=== PATIENT | female | born 1995 | race Caucasian/White ===

== ENCOUNTER 2017-11-11 14:11 | Emergency (ER) | payer OTHER ==
[2017-11-11 14:14] VITALS: PULSE 114; TEMP 98.9; BMI 26.4
--- NOTE | 2017-11-11 14:14 | PDOC ---
Rapid Medical Evaluation Time Seen by Provider: 11/11/17 14:14 Medical Evaluation: Allergies Allergy/AdvReac Type Severity Reaction Status Date / Time Sulfa (Sulfonamide Allergy Verified 11/11/17 14:11 Antibiotics) Vital Signs Temp Pulse Resp BP Pulse Ox 98.9 F 114 H 18 122/100 100 11/11/17 14:12 11/11/17 14:12 11/11/17 14:12 11/11/17 14:12 11/11/17 14:12 11/11/17 14:15 21 year old female with history of CAH and PCOS presenting with 2 weeks of worsening right flank pain, now with left flank pain. Chills but no fever. No dysuria/hematuria. History of UTI x 1 age 11. No history of nephrolithiasis. V/s notable for P 114. Bilateral CVA and suprapubic tenderness. -UA/culture -To FT for further evaluation
[2017-11-11 14:28] LABS: URINE APPEARANCE SLCLOUDY; URINE BILIRUBIN NEGATIVE (NEGATIVE); URINE BLOOD NEGATIVE (NEGATIVE); URINE COLOR YELLOW; URINE GLUCOSE (UA) NEGATIVE (NEGATIVE); URINE KETONE NEGATIVE (NEGATIVE); URINE NITRITE NEGATIVE (NEGATIVE); URINE PROTEIN NEGATIVE (NEGATIVE); URINE UROBILINOGEN NEGATIVE mg/dL (0.2-1.0)
[2017-11-11 14:31] LABS: URINE LEUK ESTERASE 1+ (NEGATIVE)
[2017-11-11 14:37] LABS: EPI CELLS RARE /HPF (FEW); URINE MUCUS FEW
--- NOTE | 2017-11-11 15:59 | PDOC ---
History of Present Illness - General Chief Complaint: Back Pain Stated Complaint: ANDREW PAIN Time Seen by Provider: 11/11/17 14:14 History Source: Patient Exam Limitations: No Limitations - History of Present Illness Initial Comments: 11/11/17 15:54 21 yr female with c/o 2 weeks low back pain radiates to flank and suprapubic area no fever , neg nausea neg vomiting or diarrhea , neg urine complaints. LMP october 29. Pt took advil this AM. Past History - Past Medical History Allergies/Adverse Reactions: Allergies Allergy/AdvReac Type Severity Reaction Status Date / Time Sulfa (Sulfonamide Allergy Verified 11/11/17 14:11 Antibiotics) Home Medications: Ambulatory Orders Dexamethasone 0.5 mg PO ASDIR 02/23/14 COPD: No Other medical history: PCOS - Suicide/Smoking/Psychosocial Hx Smoking History: Never smoked Have you smoked in the past 12 months: No Number of Cigarettes Smoked Daily: 0 Information on smoking cessation initiated: No Hx Alcohol Use: No Drug/Substance Use Hx: No Substance Use Type: None *Physical Exam - Vital Signs Last Vital Signs Temp Pulse Resp BP Pulse Ox 98.9 F 114 H 18 122/100 100 11/11/17 14:12 11/11/17 14:12 11/11/17 14:12 11/11/17 14:12 11/11/17 14:12 - Physical Exam General Appearance: Yes: Nourished, Appropriately Dressed HEENT: positive: EOMI, ZOE Neck: positive: Supple. negative: Tender Respiratory/Chest: positive: Lungs Clear, Normal Breath Sounds. negative: Chest Tender Cardiovascular: positive: Regular Rhythm, Regular Rate Female Pelvic Exam: positive: normal external exam, normal adnexa, discharge ( thick white ), adnexal tenderness (right and middle ). negative: CMT (neg CMT ) Gastrointestinal/Abdominal: positive: Normal Bowel Sounds, Tender (suprapubic area ), Soft Lymphatic: negative: Adenopathy Musculoskeletal: positive: Normal Inspection, Decreased Range of Motion (due to pain ), Vertebral Tenderness (lumbar spine point tenderness ), Other (ttp soft tissue lumbar spine and flank ttp ). negative: CVA Tenderness (R), CVA Tenderness (L) Extremity: positive: Normal Capillary Refill, Normal Inspection, Normal Range of Motion Integumentary: positive: Normal Color, Dry, Warm Neurologic: positive: Fully Oriented, Alert, Normal Mood/Affect, Normal Response , Motor Strength / ED Treatment Course - LABORATORY CBC & Chemistry Diagram: 11/11/17 15:45 11/11/17 15:45 - ADDITIONAL ORDERS Additional order review: Laboratory Results 11/11/17 02:17 Urine Color Yellow Urine Appearance Slcloudy Urine pH 5.0 D Ur Specific [place] 1.027 Urine Protein Negative Urine Glucose (UA) Negative Urine Ketones Negative Urine Blood Negative Urine Nitrite Negative Urine Bilirubin Negative Urine Urobilinogen Negative Ur Leukocyte Esterase 1+ H Urine WBC (Auto) 6 Urine RBC (Auto) 2 Ur Epithelial Cells Rare Urine Mucus Few Medical Decision Making - Medical Decision Making 11/11/17 17:52 cc: low back pain , pelvic pain for 2 weeks worse with standing neg urine or bowel dysfunction, however pt has chronic constipation denies fever , neg nvd, neg vaginal discharge or bleeding. LMP 2 weeks ago pt has no history of back injury no IVDA no surgerie tender to lumbar spine, suprapubic tenderness will r/o PID r/o ovarian cyst 11/11/17 19:40 US and cat scan results reviewed with pt and her mother. pt states her pain is tolerable and is not asking for any pain meds. I have sent flexeril and naprosyn to the pharmacy. pt agrees to follow up as discussed, pt understands that the workup is not complete until she has followed with the referred doctors. pt has her own [employer] and her own PMD. *DC/Admit/Observation/Transfer Diagnosis at time of Disposition: Muscle spasm, Pelvic pain Back pain Qualifiers: Back pain location: low back pain Chronicity: acute Back pain laterality: bilateral Sciatica presence: with sciatica Sciatica laterality: bilateral sciatica Qualified Code(s): M54.42 - Lumbago with sciatica, left side - Discharge Dispostion Disposition: HOME Condition at time of disposition: Good - Referrals - Patient Instructions Additional Instructions: apply warm compresses to your lower back and your lower pelvis every 3hrs for 20 -30 minutes take naprosyn for pain as directed take flexeril for any back spasm follow with your medical doctor in 1-4 days for follow up call tomorrow to make appointment you can also follow with the orthopedist for pain in your lower back if it gets worse avoid heavy lifting or bending as this can make symptoms worse follow with your analytical research program manager Wednesday or Wednesday for a follow up exam Return to ER for any fever, vomiting severe pain or any other worsening symptoms or concerns - Post Discharge Activity
[2017-11-11 16:51] LABS: BASO % 0.6 % (0-2.0); EOS % 2.9 % (0-4.5); HEMATOCRIT 34.5 % (32.4-45.2); HEMOGLOBIN 11.4 GM/dL (10.7-15.3); LYMPH % 39.6 % (8-40); MCH 25.4 pg (25.7-33.7); MCHC 32.9 g/dl (32.0-36.0); MEAN CELL VOLUME 77.2 fl (80-96); MEAN PLT VOLUME 8.9 fl (7.5-11.1); MONO % 7.6 % (3.8-10.2); NEUT % 49.3 % (42.8-82.8); PLATELET COUNT 251 K/MM3 (134-434); RBC 4.47 M/mm3 (3.60-5.2); RDW 14.1 % (11.6-15.6); WHITE BLOOD COUNT 8.3 K/mm3 (4.0-10.0)
[2017-11-11 17:08] LABS: ALBUMIN 3.5 g/dl (3.4-5.0); ANION GAP 8 (8-16); BILIRUBIN,TOTAL 0.5 mg/dL (0.2-1.0); BLOOD UREA NITROGEN 17 mg/dL (7-18); CALCIUM 8.2 mg/dL (8.5-10.1); CHLORIDE 107 mmol/L (98-107); CO2 24 mmol/L (21-32); CREATININE 0.6 mg/dL (0.55-1.02); GLUCOSE,RANDOM 66 mg/dL (74-106); POTASSIUM 3.7 mmol/L (3.5-5.1); SGOT/AST 9 U/L (15-37); SGPT/ALT 16 U/L (12-78); SODIUM 139 mmol/L (136-145)
[2017-11-11 17:12] LABS: ALK PHOS 48 U/L (45-117)
[2017-11-11 18:40] VITALS: BP 133/75
== END 2017-11-11 19:09 | disposition home or self-care (01) ==
LOC: JERFT 14:11
DX: M54.42 Lumbago with sciatica, left side (principal); M62.838 Other muscle spasm
CPT/HCPCS: 36415; 72131-TC; 76830-TC; 80053; 81003; 81015; 84702; 85025; 87070; 87086; 87205; 87491; 87591; 99281-25

== ENCOUNTER 2021-09-10 06:33 | Emergency (ER) | payer OTHER ==
[2021-09-10 07:05] VITALS: BMI 23.0
[2021-09-10] MEDS ORDERED: ONDANSETRON 4 MG/2 ML VIAL IVPUSH ONE (07:19)
[2021-09-10] MEDS ORDERED: FAMOTIDINE 20 MG/50 ML IVPB 20 MG/50 ML MG IVPB ONE ×2 (07:19→07:29)
[2021-09-10] MEDS ORDERED: SODIUM CHLORIDE 1,000 ML IV STA (07:19)
[2021-09-10] MEDS ORDERED: ACETAMINOPHEN 1000 MG/100 ML VIAL IVPB ONE (07:20)
[2021-09-10] MEDS ORDERED: MAG HYDROX/AL HYDROX/SIMETH 30 ML UNIT-DOSE CUP PO ONE (07:20)
[2021-09-10] MEDS ORDERED: ACETAMINOPHEN INJECTION 100 ML IVPB ONE (07:29)
[2021-09-10] MEDS ORDERED: ONDANSETRON 4 MG/2 ML VIAL ONE (07:29)
[2021-09-10] MEDS ORDERED: MAG HYDROX/AL HYDROX/SIMETH 30 ML UNIT-DOSE CUP ONE (07:29)
[2021-09-10 08:30] LABS: BASO % 0.6 % (0-2.0); EOS % 1.3 % (0-4.5); HEMATOCRIT 34.9 % (32.4-45.2); HEMOGLOBIN 11.9 GM/dL (10.7-15.3); MCHC 34.2 g/dl (32.0-36.0); MEAN CELL VOLUME 70.2 fl (80-96); MEAN PLT VOLUME 7.9 fl (7.5-11.1); MONO % 18.9 % (3.8-10.2); NEUT % 56.2 % (42.8-82.8); PLATELET COUNT 299 10^3/uL (134-434); RBC 4.97 M/mm3 (3.60-5.2); RDW 14.7 % (11.6-15.6); WHITE BLOOD COUNT 6.8 K/mm3 (4.0-10.0)
[2021-09-10 08:36] LABS: INR 1.08 (0.83-1.09); PROTHROMBIN TIME (PATIENT) 12.1 SEC (9.7-13.0)
[2021-09-10 08:59] LABS: CALCIUM 8.6 mg/dL (8.5-10.1)
[2021-09-10 09:00] LABS: ALBUMIN 3.2 g/dl (3.4-5.0); BLOOD UREA NITROGEN 21.9 mg/dL (7-18)
[2021-09-10 09:04] LABS: BILIRUBIN,TOTAL 0.3 mg/dL (0.2-1); TOT PROT 7.9 g/dl (6.4-8.2)
[2021-09-10] MEDS ORDERED: POTASSIUM CHLORIDE TABS 20 MEQ TABLET.ER (FP) PO ONE (09:48)
[2021-09-10 10:24] LABS: HCG,QUALITATIVE URINE Negative
[2021-09-10 10:47] LABS: EPI CELLS 24 /uL (0-25.1); HYALINE CASTS 7 /uL (0-3.1); URINE APPEARANCE CLOUDY; URINE BACTERIA 1904 /uL (0-1359); URINE BILIRUBIN 1+ (NEGATIVE); URINE COLOR DK YELLOW; URINE GLUCOSE (UA) NEGATIVE (NEGATIVE); URINE KETONE 1+ (NEGATIVE); URINE LEUK ESTERASE NEGATIVE (NEGATIVE); URINE NITRITE NEGATIVE (NEGATIVE); URINE PROTEIN 1+ (NEGATIVE); URINE UROBILINOGEN 0.2 mg/dL (0.2-1.0)
[2021-09-10 11:24] LABS: URINE RBC 62 /uL (0-23.9); URINE WBC 246 /uL (0-25.8)
[2021-09-10 11:26] LABS: URINE CRYSTALS AMMONIUM BIURATE /hpf
[2021-09-10] MEDS ORDERED: POTASSIUM CHLORIDE ORAL LIQUID 20 MEQ/15 ML ONE (13:32)
[2021-09-10 15:28] VITALS: BP 130/65; PULSE 80; TEMP 98
== END 2021-09-10 13:00 | disposition home or self-care (01) ==
LOC: JER 06:33
PROC: 3E0333Z Introduction of Anti-inflammatory into Peripheral Vein, Percutaneous Approach (ICD-10-PCS; principal; 2021-09-10)
PROC: 3E033GC Introduction of Other Therapeutic Substance into Peripheral Vein, Percutaneous Approach (ICD-10-PCS; 2021-09-10)
PROC: 3E033GC Introduction of Other Therapeutic Substance into Peripheral Vein, Percutaneous Approach (ICD-10-PCS; 2021-09-10)
PROC: 3E0337Z Introduction of Electrolytic and Water Balance Substance into Peripheral Vein, Percutaneous Approach (ICD-10-PCS; 2021-09-10)
DX: R19.7 Diarrhea, unspecified (principal)
CPT/HCPCS: 36415; 74177-TC; 80053; 81003; 83690; 84443; 84703; 85025; 85610; 87045; 87046; 87086; 87186; 87205; 99284-25; C9803; J0131; Q9967; U0003; U0005